=== PATIENT | female | born 1980 | race Caucasian/White ===

== ENCOUNTER 2020-08-13 12:38 | Emergency (ER) | payer BC, OTHER ==
[2020-08-13] MEDS ORDERED: Lidocaine 1% with EPINEPHrine 1:100,000 50 ML MDV INFILT ONE (12:56)
[2020-08-13 12:57] VITALS: BP 111/76; PULSE 97
[2020-08-13] MEDS ORDERED: Bacitracin Oint 1 GM U/D Packet TOP ONE (13:02)
[2020-08-13] MEDS ORDERED: Diphtheria,Pertussis(Acell),Tetanus Vaccine 0.5 ML Syringe IM ONE (13:02)
--- NOTE | 2020-08-13 13:45 | EDM.PDOC ---
ED HPI GENERAL MEDICAL PROBLEM - General Chief Complaint: Laceration Stated Complaint: SLICED RT LEG ON DOCK Time Seen by Provider: 08/13/20 12:50 Source of Information: Reports: Patient, Family History Limitations: Reports: No Limitations - History of Present Illness INITIAL COMMENTS - FREE TEXT/NARRATIVE: 39-year-old female who was jumping out of the dock when she slipped and caught her anterior right thigh on a bolt sticking out of the dock sustaining a laceration. She is able to ambulate, she has a covered with a dressing. She is otherwise healthy, her last tetanus is 2012. She is very anxious and tends to faint easily with any wounds, she has a history of vasovagal syncope. She is very lightheaded and pale. Onset: Sudden Duration: Hour(s): (1 hour ago) Location: Reports: Lower Extremity, Right - Related Data Allergies Allergy/AdvReac Type Severity Reaction Status Date / Time No Known Allergies Allergy Verified 08/13/20 12:58 Home Meds: Home Meds Multivitamin [Daily Vitamin] 1 each PO DAILY 04/10/14 [History] Past Medical History - Past Surgical History Musculoskeletal Surgical History: Reports: Carpal Tunnel Social & Family History - Tobacco Use Tobacco Use Status *Q: Never Tobacco User - Recreational Drug Use Recreational Drug Use: No ED ROS GENERAL - Review of Systems Review Of Systems: See Below Constitutional: Denies: Fever, Chills Respiratory: Denies: Shortness of Breath Cardiovascular: Denies: Chest Pain GI/Abdominal: Denies: Abdominal Pain, Nausea, Vomiting Skin: Reports: Other (See HPI) Neurological: Reports: Weakness, Other (Near syncope, feels lightheaded) Psychiatric: Reports: Anxiety ED EXAM, SKIN/RASH Exam: See Below Exam Limited By: No Limitations General Appearance: Alert, Anxious Head: Atraumatic Respiratory/Chest: No Respiratory Distress Extremities: Other (Exam otherwise limited to the right leg. Patient has a fairly deep, somewhat macerated and irregular laceration 10 cm long through the subcutaneous tissue on the lower anterior right thigh. Underlying muscle fascia is not reached, no significant underlying structures involved.) Neurological: Alert, Oriented Psychiatric: Anxious Course - Vital Signs Last Recorded V/S: Last Vital Signs Temp 97.6 F 08/13/20 12:58 Pulse 97 08/13/20 12:58 Resp 20 08/13/20 12:58 BP 111/76 06/05/21 12:58 Pulse Ox 96 08/13/20 12:58 - Orders/Labs/Meds Meds: Medications Discontinued Medications Generic Name Dose Route Start Last Admin Trade Name Oscar PRN Reason Stop Dose Admin Bacitracin 1 dose 08/13/20 13:02 08/13/20 14:08 Bacitracin Oint 1 Gm U/D Packet TOP 08/13/20 13:03 1 dose ONETIME ONE Administration Diphtheria/Tetanus/Acell Pertussis 0.5 ml 08/13/20 13:02 08/13/20 14:09 Diphtheria,Pertussis(Acell),Tetanus Vaccine 0.5 Ml Syringe IM 08/13/20 13:03 0.5 ml .ONCE ONE Administration Lidocaine/Epinephrine 50 ml 08/13/20 12:56 08/13/20 13:04 Lidocaine 1% With Epinephrine 1:100,000 50 Ml Mdv INFILT 08/13/20 12:57 50 ml ONETIME ONE Administration - Re-Assessments/Exams Free Text/Narrative Re-Assessment/Exam: 08/13/20 14:22 The lacerated area was anesthetized with 1% lidocaine with epinephrine, 30 cc total. After anesthesia it was washed thoroughly with saline, there was some dirt removed from the wound. All foreign body and material was removed. The subcutaneous tissue was then closed with six 4-0 Vicryl sutures, and the outer laceration closed with nine 4-0 Vicryl sutures. Topical bacitracin was applied as well as a pressure dressing. Stitches should remain in place for 9 to 10 days, she was placed on cephalexin 500 3 times daily for 7 days, and can increase activity as tolerated. Return if concerns of infection or not healing satisfactorily. Departure - Departure Time of Disposition: 14:15 Disposition: Home, Self-Care 01 Clinical Impression: Laceration of leg, right Qualifiers: Encounter type: initial encounter Qualified Code(s): S81.811A - Laceration without foreign body, right lower leg, initial encounter - Discharge Information Instructions: Laceration Care, Adult Referrals: Rose Bergeron MD [Primary Care Provider] - Forms: ED Department Discharge Care Plan Goals: Keep wound covered and clean while healing, increase activity as tolerated. Sutures can be removed in 9 or 10 days, recheck sooner if concerns of infection or not healing satisfactorily. Ibuprofen can help with discomfort. Take antibiotic 3 times a day until gone. Sepsis Event Note (ED) - Evaluation Sepsis Screening Result: No Definite Risk - Focused Exam Vital Signs: Vital Signs Temp Pulse Resp BP Pulse Ox 08/13/20 12:58 97.6 F 97 20 111/76 96 08/13/20 12:55 97.6 F 97 20 111/76 96
== END 2020-08-13 14:15 | disposition home or self-care (01) ==
LOC: JP.ED 12:38
DX: S71.111A Laceration without foreign body, right thigh, initial encounter (principal); Z23 Encounter for immunization; W26.8XXA Contact with other sharp object(s), not elsewhere classified, initial encounter
CPT/HCPCS: 12004; 90471; 90715; 99282-25